=== PATIENT | female | born 1965 | race Caucasian/White ===

== ENCOUNTER 2019-03-06 07:49 | Day surgery (SDC) | payer BC ==
[2019-02-28 17:13] VITALS: BMI 38.7
[2019-03-06] MEDS ORDERED: BUPIVACAINE HCL/PF 2.5 MG/ML - 30 ML VIAL IJ ONE (09:40)
[2019-03-06 09:43] LABS: INR 1.18 (0.82-1.09); PROTHROMBIN TIME (PATIENT) 13.2 SEC (10.2-13.0)
[2019-03-06] MEDS ORDERED: PROPOFOL 20 ML ONE ×6 (09:55→11:21)
[2019-03-06] MEDS ORDERED: fentaNYL CITRATE 250 MCG/5 ML VIAL ONE (09:55)
[2019-03-06] MEDS ORDERED: MIDAZOLAM HCL 2 MG/2 ML SINGLE DOSE VIAL ONE (09:56)
[2019-03-06] MEDS ORDERED: ROCURONIUM BROMIDE 50 MG/5 ML VIAL ONE (09:56)
[2019-03-06] MEDS ORDERED: SUCCINYLCHOLINE CHLORIDE 200 MG/10 ML VIAL ONE (10:06)
[2019-03-06] MEDS ORDERED: PROMETHAZINE HCL 25 MG/1 ML VIAL IVPUSH PRN (10:17)
[2019-03-06] MEDS ORDERED: ONDANSETRON 4 MG/2 ML VIAL IVPUSH PRN ×2 (10:17→12:07)
[2019-03-06] MEDS ORDERED: ACETAMINOPHEN 1000 MG/100 ML VIAL (NON FORMULARY) IVPB ONE (10:17)
[2019-03-06] MEDS ORDERED: LACTATED RINGERS SOLUTION 1,000 ML IV SCH (10:30)
[2019-03-06] MEDS ORDERED: ONDANSETRON 4 MG/2 ML VIAL ONE (11:04)
[2019-03-06] MEDS ORDERED: ceFAZolin SODIUM 1 GM VIAL ONE (11:04)
[2019-03-06] MEDS ORDERED: DEXAMETHASONE SOD PHOSPHATE 4 MG/1 ML VIAL ONE (11:04)
[2019-03-06] MEDS ORDERED: ePHEDrine SULFATE 50 MG/1 ML AMPULE ONE (11:14)
[2019-03-06] MEDS ORDERED: NEOSTIGMINE METHYLSULFATE 0.5 MG/ML - 10 ML MDV ONE (11:38)
[2019-03-06] MEDS ORDERED: GLYCOPYRROLATE 0.2 MG/1 ML VIAL ONE (11:39)
[2019-03-06] MEDS ORDERED: BUPIVACAINE HCL/PF 0.25% (2.5MG/ML) 10 ML VIAL IJ ONE (11:57)
[2019-03-06] MEDS ORDERED: ACETAMINOPHEN 325 MG TABLET (FP) PO PRN (12:07)
[2019-03-06] MEDS ORDERED: oxyCODONE HCL 5 MG TABLET PO PRN (12:07)
--- NOTE | 2019-03-06 12:12 | OP ---
Operative Note - Note: Operative Date: 03/06/19 Pre-Operative Diagnosis: Morbid Obesity. Sleep Apnea. Elevated Liver Function Tests Operation: Laparoscopic Gastric Band for GAstric Restriction. Wedge Biopsy of Left lobe of liver. Diagnostic Laparoscopy Findings: 30 cc proximal gastric pouch created with APL Band Wedge Biopsy performed on enlarged left lobe of liver Post-Operative Diagnosis: Same as Pre-op (Hepatomegaly) Surgeon: Erick Morley Pmp Project Manager: Jere Jolly Anesthesia: General Specimens Removed: Wedge biopsy of left lobe of liver Estimated Blood Loss (mls): 30 Operative Report Dictated: Yes
[2019-03-06] MEDS ORDERED: SODIUM CHLORIDE 1,000 ML IV SCH (12:15)
[2019-03-06] MEDS ORDERED: ACETAMINOPHEN INJECTION 100 ML IVPB ONE (12:30)
[2019-03-06] MEDS ORDERED: FAMOTIDINE 20 MG/50 ML IVPB 20 MG/50 ML MG IVPB ONE (12:52)
[2019-03-06] MEDS ORDERED: FAMOTIDINE 20 MG PREMIXED IVPB IVPB ONE (12:55)
[2019-03-06 13:19] LABS: HEMATOCRIT 40.1 % (32.4-45.2); HEMOGLOBIN 13.3 GM/dl (10.7-15.3); MCH 31.1 pg (25.7-33.7); MCHC 33.1 g/dl (32.0-36.0); MEAN CELL VOLUME 94.1 fl (80-96); MEAN PLT VOLUME 8.8 fl (7.5-11.1); PLATELET COUNT 212 K/MM3 (134-434); RBC 4.26 M/mm3 (3.60-5.2); RDW 11.8 % (11.6-15.6); WHITE BLOOD COUNT 7.4 K/mm3 (4.0-10.8)
[2019-03-06 13:27] LABS: CALCIUM 8.8 mg/dl (8.5-10); CREATININE 0.7 mg/dl (0.55-1.3); POTASSIUM 4.3 mmol/L (3.5-5.1)
[2019-03-06] MEDS ORDERED: ENOXAPARIN NA (PORCINE) 40 MG/0.4 ML DISP.SYRIN SQ ONE (15:00)
[2019-03-06] MEDS ORDERED: oxyCODONE HCL 5 MG TABLET ONE (15:30)
[2019-03-06 15:46] VITALS: BP 124/76; PULSE 60; TEMP 97.8
[2019-03-06] MEDS ORDERED: FAMOTIDINE 20 MG/50 ML IVPB 20 MG/50 ML MG IVPB SCH (22:00)
--- NOTE | 2019-03-07 06:40 | OP ---
DATE OF OPERATION: 03/06/2019 PREOPERATIVE DIAGNOSIS: 1. Morbid obesity. 2. Sleep apnea. 3. Elevated liver function test. POSTOPERATIVE DIAGNOSIS: 1. Morbid obesity. 2. Sleep apnea. 3. Elevated liver function test. 4. Hepatomegaly. PROCEDURE PERFORMED: 1. Gastric band for gastric restriction. 2. Wedge biopsy of the left lobe of the liver. 3. Diagnostic laparoscopy. OPERATING SURGEON: Erick Morley MD CLAIMS VICE PRESIDENT: Jere Jolly MD ANESTHESIA: General. OPERATIVE PROCEDURE: The patient was brought into the operating room, placed on the OR table in supine position. All precautions were taken initially including padding for the back and the feet, and Venodyne boots were placed on both lower extremities. At that point, the abdomen was prepped and draped in the usual manner. A Veress needle was placed in the left upper quadrant, and a pneumoperitoneum was established. Under direct vision, a No. 5 bladeless trocar was placed in the left upper quadrant, and the abdomen was entered. Immediately upon placing the trocar, the laparoscopic camera was placed under direct vision, and a No. 5 and 15 bladeless trocar were placed in the right upper quadrant, and a No. 5 bladeless trocar was placed below the left costal margin. A Sherry Liver Retractor was then placed in the epigastrium to retract the left lobe of the liver. The left lobe was noted to be extremely enlarged with elevated liver function test prior to surgery. It was decided a wedge biopsy would be performed. With the electrocautery turned higher, the edge of the inferior portion of the left lobe of the liver was scored with electrocautery in a wedge-shaped fashion. This was done first to the liver capsule, and then, the parenchyma, and the specimen was sent off the field as specimen to Pathology. The very minor oozing from the liver parenchyma was then easily controlled with electrocautery. At this juncture, the patient was placed in a 20-degree reverse Trendelenburg position by Anesthesia. As the assistant auditor surgeon retracted the omentum in the left upper quadrant inferiorly, the operating surgeon grabbed the stomach and pulled it towards the right side of the abdomen. Electrocautery was then used to score the peritoneum over the left esophagogastric junction, and this continued superiorly until the left bethel of the diaphragm was noted. As the lesser curve of the stomach was pulled towards the patients left side by the assistant auditor surgeon, the operating surgeon opened up the avascular plane over the caudate lobe of the liver. This was dissected until an opening was made through the avascular plane. At that point, the right bethel of the diaphragm was noted, and the peritoneum anterior to it was scored with electrocautery. The laparoscopic instruments were then used to make a blunt tunnel from the right to left bethel until it was free in the left upper quadrant of the abdomen. The gastric band, which was an AP large band, was then prepped by the OR team, placed with a No. 15 port site. The band tube was placed in the laparoscopic instrument, which was pulled and withdrawn to the patients right side. The band tube was placed into the band buckle, which was tied or synched down, and the band was rotated to the patients right side. The laparoscopic instrument easily fit between the band and the anterior stomach wall. The band was then sewn in place with the Endo Stitch used to grab a bite of stomach serosa above and below the band and tied over the band. When it was completed, the band tubing was brought to the No. 15 port site, and under direct vision, all trocars were removed and pneumoperitoneum released. The No. 15 trocar site was then extended laterally and dissection continued down to the right anterior rectus muscle fascia. The 2-0 Prolene sutures were placed on all 4 sides, and the port was then attached to the right anterior rectus muscle. All trocar sites then received 0.25% Marcaine, were closed with 4-0 Biosyn in subcuticular fashion. The No. 15 trocar site with the port was first closed with 2-0 Vicryl in the subcutaneous tissue followed by 4-0 Biosyn in subcuticular fashion. Dressings were applied. Patient awoke from anesthesia and transferred out of the operating room to the recovery room in stable condition. ANESTHESIA: General. SURGEON: Erick Morley MD CLAIMS VICE PRESIDENT: Jere Jolly MD EXPECTED BLOOD LOSS: 30 mL. Patient transferred to the recovery room in stable condition. Sekou [id number]
--- NOTE | 2019-03-08 15:36 | PATH ---
Surgical Pathology Report Patient Name: FABIAN ESPINOZA [facility]. Rec. #: [id number] /Age/Gender: 1965 (Age: 54) / F Account: [id number] Location: [facility] Taken: 03/06/2019 Received: 03/06/2019 Reported: 03/08/2019 Physicians: Erick Morley M.D. Specimen(s) Received LIVER BIOPSY Clinical History Morbid obesity Final Diagnosis LIVER, WEDGE BIOPSY: LIVER SHOWING MILD STEATOSIS (~10%). IRON STAIN SHOWS NO APPRECIABLE INCREASE IN IRON. RETICULIN STAIN SHOWS NO SIGNIFICANT INCREASE IN FIBROSIS. Electronically Signed Nasra Shanks M.D. Gross Description Received in formalin labeled "liver biopsy," is a 2.0 x 1.7 x 0.6 cm champagne portion of soft tissue, consistent with a wedge of liver. A customer operations representative section is submitted in one cassette. /03/07/2019 saudi/03/07/2019
== END 2019-03-06 15:46 | disposition home or self-care (01) ==
LOC: FASU 07:49
PROVIDERS: ATTEND Surgery
PROC: 0WBH4ZX Excision of Retroperitoneum, Percutaneous Endoscopic Approach, Diagnostic (ICD-10-PCS; 2019-03-06)
PROC: 0DV64CZ Restriction of Stomach with Extraluminal Device, Percutaneous Endoscopic Approach (ICD-10-PCS; principal; 2019-03-06 11:02)
DX: E66.01 Morbid (severe) obesity due to excess calories (principal); G47.30 Sleep apnea, unspecified; R94.5 Abnormal results of liver function studies; R16.0 Hepatomegaly, not elsewhere classified; Z68.38 Body mass index [BMI] 38.0-38.9, adult
CPT/HCPCS: 36415; 74241-TC-FY; 80048; 85027; 85610; 86850; 86900; 86901; 88305-TC; 88313-TC; 94760; J0131